=== PATIENT | male | born 1975 | race Caucasian/White ===

== ENCOUNTER → 2018-01-31 | Outpatient (CLI) | payer OTHER | LOC: BMCIMAGING 10:42 | PROVIDERS: ATTEND Family Medicine | DX: M50.323 Other cervical disc degeneration at C6-C7 level (principal) ==

== ENCOUNTER → 2018-02-24 | Outpatient (CLI) | payer OTHER ==
[~2018-02-24] MED LIST: GADOBUTROL 10 ML VIAL IVP ONE
== END ==
LOC: FIMAGING 12:36
PROVIDERS: ATTEND Family Medicine
DX: R55 Syncope and collapse (principal)
CPT/HCPCS: A9585

== ENCOUNTER → 2018-03-21 | Outpatient (CLI) | payer OTHER ==
--- NOTE | 2018-03-24 12:32 | CPEEG ---
DATE OF STUDY: 03/21/2018 INTERPRETATION: Normal EEG during wakefulness and sleep. There were no potentially epileptogenic ab normalities present during the recording. REPORT: This EEG contains 10 Hz alpha activity to the posterior head regions. There was no abnormal activation at rest or during photic stimulation or hyperventilation. The patient became drowsy and fell asleep during the study. There was no abnormal activation during drowsiness, sleep, or during t imes of arousal. /[id number]/MODL
== END ==
LOC: FCPNEURO 07:58
PROVIDERS: ATTEND Psychiatry & Neurology Neurology
DX: R55 Syncope and collapse (principal)

== ENCOUNTER 2018-06-25 08:18 | Day surgery (SDC) | payer OTHER ==
[2018-06-25] MEDS ORDERED: LIDOCAINE 1% 300 MG/30 ML SDV SC ONE (08:25)
--- NOTE | 2018-06-25 09:13 | PDCTREPORT ---
Cardiothoracic Procedure Rpt Cardiothoracic Procedure Report: Loop recorder insertion: Indications: Syncope After obtaining informed consent left ministerio pectoral region was sterilely prepped and draped. It was infiltrated with 2% xylocaine. A [place] loop recorder was inserted under the skin using the insertion tool after placing a stab wound. Wound was then closed with 2 carla. Pressure dressings applied the patient is discharged home in stable condition. Conclusions: Successful implantation of a loop recorder.
== END 2018-06-25 09:56 | disposition home or self-care (01) ==
LOC: FCATH 08:18
PROVIDERS: ATTEND Internal Medicine Interventional Cardiology
PROC: 0JH602Z Insertion of Monitoring Device into Chest Subcutaneous Tissue and Fascia, Open Approach (ICD-10-PCS; principal; 2018-06-25)
DX: R55 Syncope and collapse (principal)
CPT/HCPCS: C1764